=== PATIENT | female | born 1950 | race Caucasian/White ===

== ENCOUNTER 2019-01-13 20:15 | Emergency (ER) | payer OTHER ==
[~2019-01-13] VITALS: Ht 154.9 cm; Wt 68.0 kg
[~2019-01-13 20:15] MED LIST: CEFTIN250 MG/5 M; IOPHEN DM-100 MG/5 M PO; METFORMIN HCL500 MG; MUCINEX600 MG; PNEU16DI2; PROMETH-CODEIN 65 ML; PROVENTIL S1 ML/5 MG
[2019-01-14] MEDS ORDERED: LEVSIN/SL0.125 MG SL (04:32)
[2019-01-14] MEDS ORDERED: KETO10TA2 PO (04:32)
[2019-01-14] MEDS ORDERED: PEPCID40 MG PO (04:32)
== END 2019-01-14 04:44 | disposition home or self-care (01) ==
LOC: ER 20:15
DX: N83.292 Other ovarian cyst, left side (principal)

== ENCOUNTER 2019-01-24 10:52 | Emergency (ER) | payer OTHER ==
[~2019-01-24] VITALS: Ht 154.9 cm; Wt 68.0 kg
[~2019-01-24 10:52] MED LIST changes: +KETO10TA2 PO; +LEVSIN/SL0.125 MG SL; +PEPCID40 MG PO
== END 2019-01-24 15:28 | disposition home or self-care (01) ==
LOC: ER 10:52
DX: E86.0 Dehydration (principal)

== ENCOUNTER 2019-03-16 07:02 | Outpatient (CLI) | payer OTHER | END 2019-03-16 08:10 | disposition home or self-care (01) | LOC: LAB 07:02 | DX: E11.9 Type 2 diabetes mellitus without complications (principal); E78.2 Mixed hyperlipidemia; D68.8 Other specified coagulation defects; D68.4 Acquired coagulation factor deficiency; D50.8 Other iron deficiency anemias; D51.8 Other vitamin B12 deficiency anemias; I10 Essential (primary) hypertension; D68.0 Von Willebrand disease ==

== ENCOUNTER → 2025-02-02 07:27 | Outpatient (CLI) | payer OTHER | END | disposition home or self-care (01) | LOC: NUCLEAR 07:00 | DX: E21.0 Primary hyperparathyroidism (principal) | CPT/HCPCS: 78070; A9500 ==

== ENCOUNTER 2025-03-07 08:40 | Outpatient (CLI) | payer OTHER | END 2025-03-07 08:53 | disposition home or self-care (01) | LOC: TOM 08:40 | PROVIDERS: ATTEND Neuromusculoskeletal Medicine & OMM | DX: I73.9 Peripheral vascular disease, unspecified (principal) | CPT/HCPCS: 73706; Q9965 ==